=== PATIENT | female | born 1985 | race Caucasian/White ===

== ENCOUNTER 2020-12-30 23:43 | Observation (INO) | payer MEDICAID, SELFPAY ==
[2020-12-30 23:44] VITALS: BP 152/127; PULSE 109; RESP 18; TEMP 36.6; O2SAT 96; BMI 17.2
[2020-12-31] VITALS (9 sets, daily range): BP systolic 131–155; BP diastolic 80–105; PULSE 68–117; RESP 16–24; TEMP 36.7–37.2; O2SAT 97–100; BMI 19.5
[2020-12-31] MEDS: Ondansetron ODT 4 MG Tablet PO (00:29)
[2020-12-31] MEDS: 0.9% Normal Saline 1,000 ML 999 ML IV (00:43)
[2020-12-31 00:44] LABS: Absolute Lymphocyte Count 2.45 X10^3/uL (0.83-4.51); Absolute Neutrophil Count 5.2 X10^3/uL (2.0-7.7); Basophil# 0.03 X10^3/uL; Basophil% 0.4 % (0-1); Eosinophil# 0.01 X10^3/uL; Eosinophils% 0.1 % (0-5); Hematocrit 51.3 % (37-47); Hemoglobin 17.4 g/dL (12.0-15.0); Lymphocyte # 2.45 X10^3/ul (0.83-4.51); Lymphocyte % 29.9 % (19-41); Mean Corp Hgb Conc 33.9 g/dL (32-36); Mean Corpuscular Hgb 31.8 pg (27.0-32.0); Mean Corpuscular Volume 93.8 fL (81-99); Mean Platelet Vol. 9.2 fl (6.2-12.0); Monocyte# 0.54 X10^3/uL; Monocyte% 6.6 % (0-10); NRBC Flagged by Analyzer 0 % (0-5); Neutrophil # 5.15 X10^3/uL (2.7-7.7); Neutrophil % 62.8 % (47-70); Platelet Count 289 K/mm3 (150-450); RBC Distribution Width SD 42.2 fl (35.1-43.9); Red Blood Count 5.47 M/mm3 (4.2-5.4); White Blood Count 8.2 K/mm3 (4.4-11.0)
--- NOTE | 2020-12-31 00:48 | RAD_ITS ---
STUDY: X-RAY - ACUTE ABDOMINAL SERIES REASON FOR EXAM: Female, 35 years old. abd pain TECHNIQUE: Single view of the chest. Supine, erect, and decubitus view(s) of the abdomen were obtained. COMPARISON: None. FINDINGS: The lungs are clear and expanded. Normal size heart. Normal mediastinum and marcelino. Normal visualized pulmonary arteries. Normal visualized aortic arch and descending thoracic aorta. There is a non-specific bowel gas pattern. The soft tissue structures of the abdomen and pelvis are unremarkable. Healing fractures of the right eighth and ninth ribs and left ninth rib.. RAD/Acute Abd Inc Chest (Portable) IMPRESSION: No acute abnormality of the chest, abdomen, and pelvis. Electronically Signed: Lou Gill MD at 2:06 EDT Tel , Service support ,
[2020-12-31 01:07] LABS: AST(SGOT) 81 U/L (15-37); Alanine Aminotransfer ALT/SGPT 60 U/L (13-56); Albumin, Serum 3.4 g/dL (3.2-5.0); Alkaline Phosphatase 166 U/L (45-117); Anion Gap 10 (5-15); BUN 6 mg/dL (7-18); BUN/Creat Ratio 7.3 RATIO (10-20); Bilirubin, Direct 0.17 mg/dL (0.00-0.30); Calcium,Total 8.7 mg/dL (8.5-10.1); Chloride 109 mmol/L (98-107); Creatinine, Serum 0.83 mg/dL (0.55-1.02); EST Glomerular Filtration Rate 83 mL/min (>60); Est Glom Filt Rate - Afr Amer 101 mL/min (>60); Estimated Creatinine Clearance 67.74 ml/min; Globulin 4.6 g/dL (2.2-4.2); Glucose 124 mg/dL (74-106); Lipase 48 U/L (73-393); Potassium 4.7 mmol/L (3.5-5.1); Sodium Level 140 mmol/L (136-145)
[2020-12-31] MEDS: proMETHazine 25 MG/ML Syringe IV (01:40)
[2020-12-31] MEDS: LORazepam 2 MG/ML Syringe IV (02:39)
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
--- NOTE | 2020-12-31 03:08 | EDS_ITS ---
HPI History of Present Illness Chief Complaint: Substance Abuse Narrative Narrative: Patient is a 35 female with past medical history of alcohol abuse. She states she drinks 9 to 10 shots daily. She reports she was scheduled to go to an outside rehab facility today for detox at 10 AM however she decided not to do this and stayed home and drank. She reports this evening she began having generalized abdominal discomfort with bouts of nausea and vomiting. Secondary to that she presents for evaluation. She also admits that she would like to discuss possible rehab placement [facility] Medical History unable to obtain Allergy/AdvReac Type Severity Reaction Status Date / Time No Known Allergies Allergy Verified 12/31/20 00:17 Surgical History unable to obtain Social History Smoking Status: Current every day smoker tobacco type: cigarettes ROS ROS ED Constitutional Constitutional ED: Denies chills or fever(s) ENT ENT ED: Denies sore throat Cardiovascular Cardiovascular: Denies chest pain Respiratory/Chest Respiratory/Chest: Denies cough or dyspnea Gastrointestinal Gastrointestinal: Reports abdominal pain, nausea and vomiting; Denies diarrhea Genitourinary Genitourinary ED: Denies dysuria Musculoskeletal Musculoskeletal: Denies myalgias Integumentary Denies rash Neurologic Neurologic: Denies headache(s) Psychiatric Psychiatric: Denies suicidal ideation or suicidal thoughts Hematologic/Lymphatic Hematologic/Lymphatic: Denies easy bleeding or easy bruising EXAM Physical Exam Const Vital Signs: 12/30/20 23:44 12/31/20 02:29 Temperature 97.9 F Temperature Source Temporal Pulse Rate 109 H 89 Respiratory Rate 18 18 Blood Pressure 152/127 H 147/98 H Blood Pressure Mean 135 114 Pulse Ox 96 99 Oxygen Delivery Method Room Air Room Air Positive well nourished and well developed General Appearance ED: well developed HEENT Reports moist mucous membranes HEENT Narrative: No dried blood or active bleeding noted in the posterior pharynx Eyes PERRL and EOMs intact bilaterally Neck supple Neck Narrative: No crepitans palpated Resp normal respiratory effort and clear to auscultation bilaterally Cardio regular rhythm Rate: other Other Details: Mildly tachycardic rate with regular rhythm GI non-distended GI Narrative: Abdomen is soft and nondistended with hyperactive bowel sounds. There is mild diffuse pain on palpation but no voluntary guarding or rigidity Palpation: soft Extremity normal to inspection Neuro oriented x3 and CN's II-XII intact bilaterally Sensorium / Orientation: alert Motor Exam: strength 5/5 throughout Psych Attitude: agitated Mood & Affect: anxious Skin no rashes or lesions noted MDM MDM MDM Narrative Medical decision making narrative: Patient presented to the ER mildly tachycardic but afebrile. Her abdomen is soft and nonsurgical. With her report of recurrent alcohol use and abdominal discomfort with bouts of nausea and vomiting I did elect to perform basic laboratory studies to rule out damage to her pancreas and severe electrolyte changes or acute kidney injury. Bloodwork is positive for an alcohol value of 269 consistent with her history. Otherwise no clinically significant findings. Her lipase is slightly low indicating no signs of acute pancreatitis. With her belly pain and her alcohol use there is concern that she could have a perfect ulcer so acute abdominal series was ordered. This revealed a nonspecific bogus pattern with no signs of perforation. Patient was given IV fluids as well as two doses Zofran IM Phenergan Protonix and Ativan. She did report moderate symptom improvement at that time. As she is feeling better we did discuss possible rehab placement. Patient states she would prefer to stay at our facility for detox and therefore should be admitted for this purpose Lab Data Attestation: I reviewed the patient's lab results. Labs: Laboratory Results - last 24 hr 12/31/20 12/31/20 12/31/20 00:36 00:36 00:36 WBC 8.2 RBC 5.47 H Hgb 17.4 H Hct 51.3 H MCV 93.8 MCH 31.8 MCHC 33.9 RDW Std Deviation 42.2 RDW Coeff of Lilo 12.0 Plt Count 289 MPV 9.2 Immature Gran % (Auto) 0.200 Neut % (Auto) 62.8 Lymph % (Auto) 29.9 [place] % (Auto) 6.6 Eos % (Auto) 0.1 Baso % (Auto) 0.4 Absolute Neuts (auto) 5.2 Absolute Lymphs (auto) 2.45 Nucleated RBC % 0 Sodium 140 Potassium 4.7 Chloride 109 H Carbon Dioxide 21.0 Anion Gap 10 BUN 6 L Creatinine 0.83 Estim Creat Clear Calc 67.74 Est GFR (MDRD) Af Amer 101 Est GFR (MDRD) Non-Af 83 BUN/Creatinine Ratio 7.3 L Glucose 124 H Calcium 8.7 Total Bilirubin 0.80 Direct Bilirubin 0.17 AST 81 H ALT 60 H Alkaline Phosphatase 166 H Total Protein 8.0 Albumin 3.4 Globulin 4.6 H Lipase 48 L Ethyl Alcohol 269.0 Radiography Diagnostic Testing: Clinical Impression(s) from Imaging Studies Acute Abdomen Series 12/31/20 00:48 IMPRESSION: No acute abnormality of the chest, abdomen, and pelvis. Electronically Signed: Lou Gill MD at 2:06 EDT Tel , Service support , Discharge Plan Triage Chief Complaint: Substance Abuse ED Provider: Shan Zafar Dx/Rx/DC Orders Clinical Impression: Admitted to alcohol detoxification center, Nausea & vomiting Primary Care Provider: Care Physician,No Primary Referrals: Care Physician,No Primary [Primary Care Provider] - Disposition Disposition: Acute Care [facility]
[2020-12-31] MEDS: Ondansetron 4 MG/2 ML Vial IV ×2 (03:09→10:45)
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
[2020-12-31] MEDS: LORazepam 2 MG/ML Syringe 1 MG IV (04:34)
[2020-12-31] MEDS: 0.9% Normal Saline 1,000 ML 75 ML IV ×2 (04:34→17:41)
[2020-12-31 04:57] LABS: Internal QC Validated? YES +Cl - CLEAR BKGD; Pregnancy, Serum, hCG Quali. NEGATIVE Negative
--- NOTE | 2020-12-31 06:24 | NURSING ---
0348 on 12/31/20
[2020-12-31] MEDS: Phenobarbital 32.4 MG Tablet 64.8 MG PO ×4 (08:31→20:05)
[2020-12-31] MEDS: Thiamine Hydrochloride 100 MG Tablet PO (08:31)
[2020-12-31] MEDS: Folic Acid 1 MG Tablet PO (08:31)
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
--- NOTE | 2020-12-31 09:43 | ADDICTION ---
This production underwriter met with PT to conduct ASAM, MSE, AUDIT, DUDIT assessments and to plan for d/c. PT A+Ox4 and participated actively. All assessments completed, faxed to [facility] and placed in PT's chart. PT plans to go to [facility] in [place] for residential treatment and follow-up counseling services if approved.
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
[2020-12-31] MEDS: Gabapentin 300 MG Capsule PO (10:45)
[2020-12-31] MEDS: 0.9% Saline Lock 10 ML Syringe IV (10:45)
[2020-12-31] MEDS: hydrOXYzine PAM 25 MG Capsule 50 MG PO (12:23)
[2021-01-01] MEDS: Phenobarbital 32.4 MG Tablet 64.8 MG PO ×6 (00:09→19:46)
[2021-01-01] MEDS: Amitriptyline 25 MG Tablet 75 MG PO ×2 (00:09→19:46)
[2021-01-01 04:10] VITALS: BP 132/99; PULSE 90; RESP 18; TEMP 37.1; O2SAT 94
[2021-01-01 04:11] VITALS: BP 132/99; PULSE 90; RESP 18; TEMP 37.1; O2SAT 94
[2021-01-01 06:40] LABS: Absolute Lymphocyte Count 2.67 X10^3/uL (0.83-4.51); Absolute Neutrophil Count 2.5 X10^3/uL (2.0-7.7); Basophil# 0.03 X10^3/uL; Basophil% 0.5 % (0-1); Eosinophil# 0.06 X10^3/uL; Eosinophils% 1.1 % (0-5); Hematocrit 45.5 % (37-47); Hemoglobin 15.4 g/dL (12.0-15.0); Lymphocyte # 2.67 X10^3/ul (0.83-4.51); Lymphocyte % 47.4 % (19-41); Mean Corp Hgb Conc 33.8 g/dL (32-36); Mean Corpuscular Hgb 32.1 pg (27.0-32.0); Mean Corpuscular Volume 94.8 fL (81-99); Mean Platelet Vol. 9.4 fl (6.2-12.0); Monocyte# 0.35 X10^3/uL; Monocyte% 6.2 % (0-10); NRBC Flagged by Analyzer 0 % (0-5); Neutrophil # 2.51 X10^3/uL (2.7-7.7); Neutrophil % 44.6 % (47-70); Platelet Count 203 K/mm3 (150-450); RBC Distribution Width SD 42.2 fl (35.1-43.9); White Blood Count 5.6 K/mm3 (4.4-11.0)
[2021-01-01 07:11] LABS: ALB/GLOB Ratio 0.9 RATIO (0.9-2.4); AST(SGOT) 47 U/L (15-37); Alanine Aminotransfer ALT/SGPT 42 U/L (13-56); Albumin, Serum 2.9 g/dL (3.2-5.0); Alkaline Phosphatase 138 U/L (45-117); Anion Gap 10 (5-15); BUN 5 mg/dL (7-18); BUN/Creat Ratio 9.2 RATIO (10-20); Calcium,Total 8.4 mg/dL (8.5-10.1); Chloride 104 mmol/L (98-107); Creatinine, Serum 0.55 mg/dL (0.55-1.02); EST Glomerular Filtration Rate 135 mL/min (>60); Est Glom Filt Rate - Afr Amer 163 mL/min (>60); Estimated Creatinine Clearance 116.75 ml/min; Globulin 3.2 g/dL (2.2-4.2); Glucose 85 mg/dL (74-106); Protein, Total 6.1 g/dL (6.4-8.2); Sodium Level 138 mmol/L (136-145)
[2021-01-01] MEDS: 0.9% Normal Saline 1,000 ML 75 ML IV (07:48)
[2021-01-01] MEDS: Thiamine Hydrochloride 100 MG Tablet PO (07:48)
[2021-01-01] MEDS: Folic Acid 1 MG Tablet PO (07:48)
[2021-01-01] MEDS: Paroxetine 20 MG Tablet PO (07:49)
[2021-01-01 07:54] VITALS: BP 115/89; PULSE 105; RESP 16; TEMP 36.6; O2SAT 94
--- NOTE | 2021-01-01 08:05 | PCS.PANDOC ---
PANDEMIC DOCUMENTATION INITIATED: Date: 11/03/2020 Time: 190
[2021-01-01 08:29] LABS: Magnesium 1.6 mg/dL (1.6-2.6)
[2021-01-01] MEDS: Potassium Chloride Oral Tablet 20 MEQ 60 MEQ PO (08:52)
[2021-01-01] MEDS: Ondansetron 4 MG/2 ML Vial IV ×2 (08:55→19:51)
[2021-01-01] MEDS: Dicyclomine 10 MG Capsule 20 MG PO ×2 (08:55→19:50)
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
[2021-01-01 12:23] VITALS: BP 161/98; PULSE 77; RESP 16; TEMP 37.2; O2SAT 98
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
[2021-01-01 15:57] VITALS: BP 165/113; PULSE 84; RESP 16; TEMP 37.2; O2SAT 99
[2021-01-01] MEDS: 0.9% Saline Lock 10 ML Syringe IV (19:51)
[2021-01-01 23:55] VITALS: BP 149/114; PULSE 100; RESP 16; TEMP 37.2; O2SAT 97
[2021-01-02] MEDS: Phenobarbital 32.4 MG Tablet 64.8 MG PO ×4 (00:15→11:39)
[2021-01-02 05:53] VITALS: BP 118/101; PULSE 111; RESP 16; TEMP 36.9; O2SAT 97
[2021-01-02] MEDS: Thiamine Hydrochloride 100 MG Tablet PO (08:19)
[2021-01-02] MEDS: Paroxetine 20 MG Tablet PO (08:19)
[2021-01-02] MEDS: Folic Acid 1 MG Tablet PO (08:19)
[2021-01-02 08:22] VITALS: BP 109/87; PULSE 114; RESP 16; TEMP 36.6; O2SAT 96
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
[2021-01-02 11:52] VITALS: BP 132/108; PULSE 111; RESP 16; TEMP 36.8; O2SAT 98
--- NOTE | 2021-01-02 13:43 | NURSING ---
pt stated she wants to leave. pt signed ama papers. notified
== END 2021-01-02 14:31 | disposition left against medical advice (07) | DRG 249 ==
LOC: ED 12-31 03:13 → MS3 12-31 07:04
PROVIDERS: Admitting Provider Hospitalist; Emergency Provider Emergency Medicine; Visit Provider Family Medicine
DX: K52.9 Noninfective gastroenteritis and colitis, unspecified (principal); F10.20 Alcohol dependence, uncomplicated; F11.10 Opioid abuse, uncomplicated; F14.10 Cocaine abuse, uncomplicated; Y90.8 Blood alcohol level of 240 mg/100 ml or more; Z86.19 Personal history of other infectious and parasitic diseases; Z91.410 Personal history of adult physical and sexual abuse; F17.210 Nicotine dependence, cigarettes, uncomplicated
CPT/HCPCS: 36415; 74022; 80048; 80053; 80076; 82077; 83690; 83735; 84100; 84703; 85025; 96361; 96365; 96375; 96376; 99218; 99285; 99406; J7030; A4216; G0378; J2405